=== PATIENT | female | born 1995 | race African-American/Black ===

== ENCOUNTER 2021-06-28 19:16 | Emergency (ER) | payer OTHER ==
[2021-06-28 19:37] VITALS: BMI 23.5
[2021-06-28] MEDS ORDERED: FAMOTIDINE 20 MG/50 ML IVPB 20 MG/50 ML MG IVPB ONE ×2 (20:07→20:20)
[2021-06-28] MEDS ORDERED: DEXAMETHASONE SOD PHOSPHATE 10 MG/1 ML VIAL IVPUSH ONE (20:07)
[2021-06-28] MEDS ORDERED: SODIUM CHLORIDE 0.9% 500 ML INFUS.BAG IV ONE (20:07)
[2021-06-28] MEDS ORDERED: ONDANSETRON 4 MG/2 ML VIAL IVPUSH ONE (20:14)
[2021-06-28] MEDS ORDERED: ONDANSETRON 4 MG/2 ML VIAL ONE (20:19)
[2021-06-28] MEDS ORDERED: DEXAMETHASONE SOD PHOSPHATE 10 MG/1 ML VIAL ONE (20:19)
[2021-06-29 01:21] VITALS: BP 113/56; PULSE 85; TEMP 98.4
== END 2021-06-29 01:00 | disposition home or self-care (01) ==
LOC: JER 19:16
PROC: 3E033GC Introduction of Other Therapeutic Substance into Peripheral Vein, Percutaneous Approach (ICD-10-PCS; principal; 2021-06-28)
DX: O26.892 Other specified pregnancy related conditions, second trimester (principal); R09.89 Other specified symptoms and signs involving the circulatory and respiratory systems; Z3A.26 26 weeks gestation of pregnancy
CPT/HCPCS: 70360-TC-FY; 99284-25; J1100

== ENCOUNTER 2021-09-21 23:05 | Inpatient (IN) | payer OTHER ==
[2021-09-22 01:25] VITALS: BMI 28.1
[2021-09-22 01:31] LABS: BASO % 0.2 % (0-2.0); EOS % 0.4 % (0-4.5); HEMATOCRIT 25.8 % (32.4-45.2); HEMOGLOBIN 8.4 GM/dL (10.7-15.3); LYMPH % 12.3 % (8-40); MCHC 32.7 g/dl (32.0-36.0); MEAN CELL VOLUME 70.5 fl (80-96); MEAN PLT VOLUME 9.3 fl (7.5-11.1); MONO % 5.8 % (3.8-10.2); NEUT % 81.3 % (42.8-82.8); PLATELET COUNT 211 10^3/uL (134-434); RBC 3.65 M/mm3 (3.60-5.2); RDW 16.4 % (11.6-15.6); WHITE BLOOD COUNT 10.8 K/mm3 (4.0-10.0)
[2021-09-22 01:41] LABS: INR 0.95 (0.83-1.09); PROTHROMBIN TIME (PATIENT) 11.1 SEC (9.7-13.0)
[2021-09-22 01:44] LABS: ACTIVATED PTT 25.5 SECONDS (25.2-36.5)
[2021-09-22 02:04] LABS: BLOOD UREA NITROGEN 8.5 mg/dL (7-18); CREATININE 0.6 mg/dL (0.55-1.3)
[2021-09-22 02:05] LABS: CALCIUM 8.5 mg/dL (8.5-10.1)
[2021-09-22] MEDS ORDERED: ELECTROLYTE-148 SOLN 1,000 ML IV SCH (02:30)
[2021-09-22] MEDS ORDERED: PCA PUMP NR ONE ×2 (03:33→11:34)
[2021-09-22] MEDS ORDERED: FENTANYL/BUPIVACAINE/NS/PF - PCEA - 50 ML DISP.SYRIN EP ONE ×2 (03:34→03:52)
[2021-09-22] MEDS: FENTANYL/BUPIVACAINE/NS/PF - PCEA - 50 ML DISP.SYRIN EP SCH (04:00)
[2021-09-22] MEDS ORDERED: NALOXONE HCL 0.4 MG/ML VIAL IVPUSH PRN (04:08)
[2021-09-22] MEDS: OXYTOCIN 30 UNITS in 0.9% NS 30 UNIT/500 ML INFUS.BAG IVPB SCH (05:30)
[2021-09-22] MEDS ORDERED: OXYTOCIN 30 UNITS in 0.9% NS 30 UNIT/500 ML INFUS.BAG IVPB ONE (05:34)
[2021-09-22] MEDS ORDERED: LIDOCAINE HCL 1% PRESERVATIVE FREE - 30ML VIAL ONE (08:16)
[2021-09-22] MEDS ORDERED: OXYTOCIN 20 UNITS in 0.9% NS 20 UNIT/1,000 ML INFUS.BAG IV ONE (08:16)
[2021-09-22] MEDS ORDERED: BENZOCAINE 28 GM HEMORRHOIDAL OINTMENT TP PRN (09:23)
[2021-09-22] MEDS ORDERED: WITCH HAZEL 50% (TUCKS) 40 PAD/JAR PAD TP PRN (09:23)
[2021-09-22] MEDS ORDERED: DOCUSATE SODIUM 100 MG CAPSULE (FP) PO PRN (09:24)
[2021-09-22] MEDS ORDERED: OXYTOCIN 20 UNITS in 0.9% NS 20 UNIT/1,000 ML INFUS.BAG IV SCH (09:30)
[2021-09-22 09:34] LABS: POC NITRAZINE POS
[2021-09-22] MEDS ORDERED: BENZOCAINE 20% 57 GM BOTTLE TP PRN (10:20)
[2021-09-22] MEDS ORDERED: ACETAMINOPHEN 325 MG TABLET (FP) ONE (11:21)
[2021-09-22] MEDS: ACETAMINOPHEN 325 MG TABLET (FP) PO PRN (11:25)
[2021-09-22] MEDS: IBUPROFEN 600 MG TABLET (FP) PO PRN ×2 (13:25→18:39)
[2021-09-23] MEDS: OXYTOCIN 30 UNITS in 0.9% NS 30 UNIT/500 ML INFUS.BAG IVPB SCH (05:56)
[2021-09-23] MEDS: FENTANYL/BUPIVACAINE/NS/PF - PCEA - 50 ML DISP.SYRIN EP SCH (05:57)
[2021-09-23] MEDS: IBUPROFEN 600 MG TABLET (FP) PO PRN (06:38)
[2021-09-23 08:28] LABS: BASO % 0.3 % (0-2.0); EOS % 0.9 % (0-4.5); HEMATOCRIT 25.6 % (32.4-45.2); HEMOGLOBIN 8.2 GM/dL (10.7-15.3); MCH 22.5 pg (25.7-33.7); MCHC 31.9 g/dl (32.0-36.0); MEAN CELL VOLUME 70.4 fl (80-96); MEAN PLT VOLUME 8.8 fl (7.5-11.1); MONO % 6.8 % (3.8-10.2); PLATELET COUNT 172 10^3/uL (134-434); RBC 3.63 M/mm3 (3.60-5.2); RDW 16.2 % (11.6-15.6); WHITE BLOOD COUNT 10.4 K/mm3 (4.0-10.0)
[2021-09-23] MEDS ORDERED: SENNOSIDES/DOCUSATE COMBO (SENNA PLUS) TABLET (UD) PO PRN (22:00)
[2021-09-24] MEDS: FENTANYL/BUPIVACAINE/NS/PF - PCEA - 50 ML DISP.SYRIN EP SCH (06:10)
[2021-09-24] MEDS: IBUPROFEN 600 MG TABLET (FP) PO PRN (06:52)
[2021-09-24] MEDS: ACETAMINOPHEN 325 MG TABLET (FP) PO PRN (06:52)
[2021-09-24 11:51] VITALS: BP 117/73; PULSE 78; TEMP 98.2
== END 2021-09-24 13:45 | disposition home or self-care (01) | DRG 560 ==
LOC: JLDR 23:05 → J3W 09-22 11:45
PROVIDERS: ADMIT Student in an Organized Health Care Education/Training Program; ATTEND Student in an Organized Health Care Education/Training Program
PROC: 10E0XZZ Delivery of Products of Conception, External Approach (ICD-10-PCS; principal; 2021-09-22)
DX: O42.013 Preterm premature rupture of membranes, onset of labor within 24 hours of rupture, third trimester (principal); O99.02 Anemia complicating childbirth; D64.9 Anemia, unspecified; Z3A.38 38 weeks gestation of pregnancy; Z37.0 Single live birth
CPT/HCPCS: 36415; 59409; 80048; 83986-QW; 85025; 85610; 85730; 86780; 86850; 86900; 86901; C9803; U0003; U0005

== ENCOUNTER 2021-10-29 12:44 | Emergency (ER) | payer OTHER ==
[2021-10-29 12:55] VITALS: BMI 23.5
[2021-10-29] MEDS ORDERED: ACETAMINOPHEN 500 MG TABLET (FP) PO ONE (13:34)
[2021-10-29 15:39] VITALS: BP 95/57; PULSE 106; TEMP 98.7
== END 2021-10-29 16:33 | disposition home or self-care (01) ==
LOC: JCOVINFU 12:44 → JER 12:44
DX: J06.9 Acute upper respiratory infection, unspecified (principal)
CPT/HCPCS: 99283-25; C9803; U0003; U0005

== ENCOUNTER 2023-03-25 12:20 | Emergency (ER) | payer OTHER ==
[2023-03-25 12:25] VITALS: BP 105/70; PULSE 90; RESP 17; TEMP 98.8; BMI 23.5
[2023-03-25 14:24] LABS: BASO % 0.5 % (0-2.0); EOS % 0.4 % (0-4.5); HEMATOCRIT 33.8 % (32.4-45.2); HEMOGLOBIN 11.5 GM/dL (10.7-15.3); LYMPH % 15.8 % (8-40); MCH 27.4 pg (25.7-33.7); MCHC 33.9 g/dl (32.0-36.0); MEAN CELL VOLUME 80.9 fl (80-96); MEAN PLT VOLUME 12.2 fl (7.5-11.1); MONO % 8.5 % (3.8-10.2); NEUT % 74.8 % (42.8-82.8); PLATELET COUNT 177 10^3/uL (134-434); RBC 4.18 M/mm3 (3.60-5.2); RDW 13.5 % (11.6-15.6); WHITE BLOOD COUNT 7.4 K/mm3 (4.0-10.0)
[2023-03-25 14:43] LABS: POTASSIUM 4.4 mmol/L (3.5-5.1)
[2023-03-25 14:45] LABS: CALCIUM 9.4 mg/dL (8.5-10.1)
[2023-03-25 14:46] LABS: BLOOD UREA NITROGEN 7.4 mg/dL (7-18)
[2023-03-25 14:49] LABS: CREATININE 0.7 mg/dL (0.55-1.3)
[2023-03-25 15:10] LABS: EPI CELLS >36 /uL (0-25.1); HYALINE CASTS 0 /uL (0-3.1); PH,URINE 8.5 (5.0-8.0); URINE APPEARANCE CLEAR; URINE BACTERIA 806 /uL (0-1359); URINE BILIRUBIN NEGATIVE (NEGATIVE); URINE COLOR YELLOW; URINE GLUCOSE (UA) NEGATIVE (NEGATIVE); URINE KETONE NEGATIVE (NEGATIVE); URINE LEUK ESTERASE NEGATIVE (NEGATIVE); URINE NITRITE NEGATIVE (NEGATIVE); URINE PROTEIN NEGATIVE (NEGATIVE); URINE RBC 11 /uL (0-23.9); URINE WBC 13 /uL (0-25.8)
[2023-03-25 15:13] LABS: HCG,QUALITATIVE URINE Positive
== END 2023-03-25 16:48 | disposition home or self-care (01) ==
LOC: JER 12:20
DX: O41.8X10 Other specified disorders of amniotic fluid and membranes, first trimester, not applicable or unspecified (principal); O46.8X1 Other antepartum hemorrhage, first trimester; R10.30 Lower abdominal pain, unspecified; Z3A.01 Less than 8 weeks gestation of pregnancy
CPT/HCPCS: 36415; 76830-TC; 80048; 81003; 84702; 84703; 85025; 86850; 86900; 86901; 87086; 99284-25

== ENCOUNTER 2024-01-10 11:11 | Emergency (ER) | payer OTHER ==
[2024-01-10 11:28] VITALS: BP 118/78; PULSE 104; RESP 18; TEMP 98.8; BMI 21.9
[2024-01-10 12:55] LABS: BASO % 0.3 % (0-2.0); EOS % 0.4 % (0-4.5); HEMATOCRIT 25.8 % (32.4-45.2); HEMOGLOBIN 8.2 GM/dL (10.7-15.3); LYMPH % 17.1 % (8-40); MCH 23.2 pg (25.7-33.7); MCHC 31.7 g/dl (32.0-36.0); MEAN CELL VOLUME 73.3 fl (80-96); NEUT % 77.2 % (42.8-82.8); PLATELET COUNT 238 10^3/uL (134-434); RBC 3.52 M/mm3 (3.60-5.2); WHITE BLOOD COUNT 7.1 K/mm3 (4.0-10.0)
[2024-01-10] MEDS ORDERED: ACETAMINOPHEN 325 MG TABLET (FP) ONE (14:27)
[2024-01-10] MEDS: ACETAMINOPHEN 500 MG TABLET (FP) PO ONE (14:58)
== END 2024-01-10 14:58 | disposition home or self-care (01) ==
LOC: JER 11:11
DX: N93.9 Abnormal uterine and vaginal bleeding, unspecified (principal); R42 Dizziness and giddiness; R00.0 Tachycardia, unspecified
CPT/HCPCS: 36415; 84703; 85025; 86850; 86900; 86901; 99283-25

== ENCOUNTER 2024-01-11 04:20 | Day surgery (SDC) | payer OTHER ==
[2024-01-05 11:02] VITALS: BMI 21.9
[2024-01-11] MEDS ORDERED: MIDAZOLAM HCL 2 MG/2 ML SINGLE DOSE VIAL ONE (13:06)
[2024-01-11] MEDS ORDERED: PROPOFOL 20 ML ONE (13:06)
[2024-01-11] MEDS ORDERED: oxyCODONE HCL 5 MG TABLET PO PRN (13:53)
[2024-01-11] MEDS ORDERED: PROMETHAZINE HCL 25 MG/1 ML VIAL IVPB PRN (13:53)
[2024-01-11] MEDS ORDERED: ONDANSETRON 4 MG/2 ML VIAL IVPUSH PRN (13:53)
[2024-01-11] MEDS ORDERED: LACTATED RINGERS SOLUTION 1,000 ML IV SCH (14:00)
[2024-01-11 17:58] VITALS: TEMP 98.3
[2024-01-11] MEDS ORDERED: ACETAMINOPHEN 500 MG TABLET (FP) ONE (18:01)
[2024-01-11 18:24] VITALS: BP 122/69; PULSE 65; RESP 18
== END 2024-01-11 18:20 | disposition home or self-care (01) ==
LOC: JASU-SURG 04:20
PROVIDERS: ATTEND Obstetrics & Gynecology
PROC: 10D17ZZ Extraction of Products of Conception, Retained, Via Natural or Artificial Opening (ICD-10-PCS; principal; 2024-01-11 12:30)
DX: O02.1 Missed abortion (principal)
CPT/HCPCS: 88305-TC; 94760